=== PATIENT | male | born 1945 | race Caucasian/White ===

== ENCOUNTER 2019-06-20 20:45 | Emergency (ER) | payer SELFPAY ==
[~2019-06-20] VITALS: Ht 185.4 cm; Wt 77.3 kg
[2019-06-20 20:49] VITALS: BP 137/70; Ht 185.4 cm; Wt 77.3 kg
[2019-06-20] MEDS ORDERED: DONEPEZIL HCL5 MG (20:59)
[2019-06-20] MEDS ORDERED: ARTANE2 MG PO (21:01)
[2019-06-20 21:26] LABS: BASOPHILS 0.4 % (0-2); EOSINOPHILS 8.2 % (0-7); HEMATOCRIT 44.7 % (42.0-54.0); HEMOGLOBIN 14.3 g/dL (13.5-17.5); IMMATURE GRANULOCYTES 0.2 % (0-5); LYMPHOCYTES 22.2 % (15-50); MCV 93.7 fL (80.0-100.0); MEAN PLATELET VOLUME 9.1 fL (7.4-10.4); MONOCYTES 11.5 % (2-11); NEUTROPHILS 57.5 % (40-80); PLATELET COUNT 220 10x3/uL (130-400); RBC 4.77 10x6/uL (4.20-6.10); RDW 13.3 % (11.5-14.5); WBC 9.7 10x3/uL (4.8-10.8)
[2019-06-20 21:36] LABS: CALC OSMOLALITY 285 mosm/kg (275-300); CALCIUM 9.1 mg/dL (8.5-10.1); CARBON DIOXIDE 36.6 mmol/L (21.0-32.0); CHLORIDE - SERUM 104 mmol/L (98-107); CREATININE - SERUM 0.9 mg/dL (0.6-1.3); GLUCOSE 92 mg/dL (74-106); POTASSIUM - SERUM 3.9 mmol/L (3.5-5.1); SODIUM 142 mmol/L (136-145); UREA NITROGEN 21 mg/dL (7-18); eGFR NON AFRICAN AMERICAN 88 mL/min (90-120)
[2019-06-20 21:42] LABS: ALBUMIN 4.1 g/dL (3.4-5.0); ALKALINE PHOSPHATASE 86 U/L (46-116); ALT (SGPT) 21 U/L (10-68); BILIRUBIN - TOTAL 0.76 mg/dL (0.2-1.3)
== END 2019-06-20 21:50 | disposition home or self-care (01) ==
LOC: D.ER 20:45
PROVIDERS: Emergency Medicine
DX: F03.90 Unspecified dementia, unspecified severity, without behavioral disturbance, psychotic disturbance, mood disturbance, and anxiety (principal); F17.210 Nicotine dependence, cigarettes, uncomplicated